=== PATIENT | female | born 1960 | race Caucasian/White ===

== ENCOUNTER 2018-10-27 10:52 | Inpatient (IN) ==
--- NOTE | 2018-10-17 15:51 | PAT Medication Instructions ---
Medication Instructions Date of Service October 17, 2018 Home Medications Airborne 1 dose PO QPM diphenhydramine HCl [Benadryl] 25 mg PO HS PRN metformin 500 mg PO QPM [Centrum Silver Women] chzwuewz-hqo-ltjw-FA-lutein 1 tab PO DAILY multivitamin with minerals 2 tab PO DAILY STOP taking 2 weeks before surgery (or as soon as possible if surgery is within 2 weeks) [Centrum Silver Women] sjhouttu-ukk-mwxe-FA-lutein 1 tab PO DAILY [hair, skin, nails] multivitamin with minerals 2 tab PO DAILY Take evening before surgery Airborne 1 dose PO QPM diphenhydramine HCl [Benadryl] 25 mg PO HS PRN (if needed) metformin 500 mg PO QPM Other Notes If you have any questions please call us at [phone] or [phone] or [phone] or [phone]
--- NOTE | 2018-10-18 14:28 | XRay Report ---
XR chest Pre-admission PA/Lat CLINICAL HISTORY: 57 years-old Female presenting with preoperative assessment. TECHNIQUE: PA and lateral views of the chest were obtained. COMPARISON: None. FINDINGS: Cardiomediastinal silhouette normal. Lungs and pleural spaces clear. Osseous structures normal. Osiris cystectomy clips noted. IMPRESSION: 1. No acute cardiopulmonary disease. Electronically signed by: Cecil Guadalupe M.D. 10/18/2018 2:26 PM
[2018-10-18 15:26] LABS: Basophils # (auto) 0.03 K/uL (0-0.2); Basophils % (auto) 0.3 %; Eosinophils # (auto) 0.14 K/uL (0-0.5); Eosinophils % (auto) 1.6 %; Hemoglobin 14.5 g/dL (12.0-16.0); Immature Granulocytes # (auto) 0.02 K/uL (0.00-0.02); Immature Granulocytes % (auto) 0.2 %; Lymphocytes # (auto) 3.15 K/uL (1.2-3.4); Lymphocytes % (auto) 36.1 %; Mean Corpuscular Hgb Conc 34.5 g/dL (32-36); Mean Corpuscular Volume 86.6 fL (80-100); Mean Platelet Volume 10.7 fL (7.4-10.4); Monocytes % (auto) 6.9 %; Neutrophils # (auto) 4.78 K/uL (1.4-6.5); Neutrophils % (auto) 54.9 %; Platelet Count 256 K/uL (130-400); RDW Coefficient of Variation 12.5 % (11.5-14.5); Red Blood Count 4.85 M/uL (4.2-5.4); White Blood Count 8.72 K/uL (4.8-10.8)
[2018-10-18 15:27] LABS: Appearance Urine Clear (Clear); Bilirubin Urine Negative (Negative); Blood Urine Negative (Negative); Color Urine Yellow; Glucose Urine UA Negative (Negative); Ketones Urine Negative (Negative); Leukocyte Esterase Urine Negative (Negative); Nitrite Urine Negative (Negative); Protein Urine Negative (Negative); Specific Gravity Urine 1.015 (1.000-1.030); Urobilinogen Urine Negative (Negative); pH Urine 5.5 (4.5-7.5)
--- NOTE | 2018-10-18 15:33 | Anesthesiology Consultation ---
Date of Service October 18, 2018 Assessment & Plan (1) Encounter for pre-operative examination: - Check BSG AM DOS *Possible difficult intubation due to anatomy* Chart Review Chart Review: Acceptable Risk for Surgery and Patient seen in Pre Admission Testing Teaching & Discussion Pre-Anesthesia Teaching/Discussion Notes: Instructed NPO after midnight before surgery,except medications with 15 cc of water. Medication instructions provided according to the PAT guidelines. History Surgery Operation Date: 10/27/18 10:35 Proposed Procedures p L4-S1 Decompression and Fusion, Spinal Cord Monitoring - Levon Montiel DO Height/Weight Height: 5 ft 2 in Weight: 79.7 kg Allergies Allergy/AdvReac Type Severity Reaction Status Date / Time No Known Allergies Allergy Verified 10/14/18 15:37 Medications Home Medications Medication Instructions Recorded Confirmed Last Taken Airborne 1 dose PO QPM 10/14/18 10/14/18 Unknown diphenhydramine HCl [Benadryl] 25 mg PO HS PRN 10/14/18 10/14/18 Unknown metformin 500 mg PO QPM 10/14/18 10/14/18 Unknown myxscczw-mna-izmt-FA-lutein 1 tab PO DAILY 10/14/18 10/14/18 Unknown [Centrum Silver Women] multivitamin with minerals 2 tab PO DAILY 10/14/18 10/14/18 Unknown [Hair,Skin and Nails] Past Medical History Medical History Diabetes NIDDM Obesity Snores NO DIAGNOSIS DARIANA Spinal stenosis Exercise / Class Metabolic Activity II 4-5 Yardwork/Stairs/Walk up hill Past Family History Family History Aunt Family history of cancer Uncle Family history of cancer Other Family history of colon cancer in father Past Surgical History Surgical History History of bilateral breast reduction surgery History of cholecystectomy History of colonoscopy History of tubal ligation History of varicose veins LE S/P ABLATION Past Anesthesia History No Hx of Anesthesia Complications (EXCEPT POST-OP NAUSEA) and No Family Hx of Anesthesia Complications History of PONV History of PONV (REMOTE; NO ISSUE WHEN PRE-TREATMENT GIVEN) and Hx of Motion Si ckness Social History Smoking Status: Never smoker Do You Dip or Chew Tobacco: No Hx Alcohol Use: No Hx Substance Use: No substance use type: does not use Review of Systems Patient denies chest pain, shortness of breath, dyspnea on exertion, reflux, cough, wheezing, palpitations. Physical Exam Vital Signs VITALS BP 127/86 P 70 TEMP 97.9 SP02 96%RA RESP 16 PHYSICAL Full neck and c-spine range of motion. Full TMJ range of motion. TMD 2 finger breaths (small chin) Mallampati Score 3 Dentition: intact, several crowns all over Lungs: clear throughout to auscultation Cardiac: regular rate and rhythm, no murmurs noted Spine: normal Carotid arteries: negative bruit Extremities: no edema Testing Electrocardiogram Date: 10/18/18 NSR at 73bpm. NS TWA. Prolonged QT* Chest X-Ray Date: 10/18/18 Findings: + NAD Laboratory Results 10/18/18 14:01 10/18/18 14:01 PT 10.3 Seconds (9.0-12.0) 10/18/18 14: INR 1.0 (0.9-1.1) 10/18/18 14: APTT 25.4 Seconds (21.0-31.0) 10/18/18 14:01 Yellow 10/18/18 14:01 Clear (Clear) 10/18/18 14:01 5.5 (4.5-7.5) 10/18/18 14: Ur Specific [place] 1.015 (1.000-1.030) 10/18/18 14:01 Negative (Negative) 10/18/18 14:01 Negative (Negative) 10/18/18 14:01 Negative (Negative) 10/18/18 14:01 Negative (Negative) 10/18/18 14:01 Ur Leukocyte Esterase Negative (Negative) 10/18/18 14:01 Blood Type A Negative 10/18/18 14:01 Antibody Screen NEGATIVE 10/18/18 14:01
[2018-10-18 15:40] LABS: Partial Thromboplastin Ratio 0.9; Partial Thromboplastin Time 25.4 Seconds (21.0-31.0); Prothrombin Time 10.3 Seconds (9.0-12.0)
[2018-10-18 15:41] LABS: BUN Creatinine Ratio 25.1 (10-20); Calcium 9.3 mg/dl (8.5-10.1); Creatinine Clr Calc Pharmacy 94.5 ml/min; Est GFR (Non-African American) 99.2; Potassium 3.8 mmol/L (3.5-5.1)
[~2018-10-27 10:52] MED LIST: ACETAMINOPHEN 500 MG TAB PO SCH; CEFAZOLIN 2000MG 2,000 MG/15 ML SYR IV SCH; CeleBREX 200 MG CAP PO SCH; GABAPENTIN 300 MG x 2 PO SCH; HYDROmorphone INJ 2 MG/ML SYR/VIAL ONE; LR 15ML/HR IV SCH; PROPOFOL IV EMULSION 10 MG/ML 100 ML VIAL IV ONE
[2018-10-27] MEDS ORDERED: LR 15ML/HR IV SCH (11:30)
[2018-10-27] MEDS ORDERED: MIDAZOLAM HCL 1 MG/ML 2ML VIAL ONE (12:06)
[2018-10-27] MEDS ORDERED: fentaNYL citrate 100 MCG/2 ML VIAL ONE ×3 (12:06→13:44)
--- NOTE | 2018-10-27 12:50 | History & Physical Bridge Note ---
Date of Service October 27, 2018 History & Physical Bridge Note I have examined the patient, reviewed the History & Physical and in the interval since the performance of the History & Physical I have noted the following changes of clinical significance: no changes noted
--- NOTE | 2018-10-27 12:51 | History & Physical Report ---
Date of Service October 27, 2018 Assessment & Plan (1) Spinal stenosis, lumbar region with neurogenic claudication: L4-S1 decompression and fusion Present on Admission?: Yes History of Present Illness Chief Complaint: Chronic back and bilateral leg pain Primary Care Provider: NO PCP This is a 57-year-old female well-known to us that presents with chronic persistent back and bilateral leg pain and is here for surgical intervention. Allergies Allergy/AdvReac Type Severity Reaction Status Date / Time No Known Allergies Allergy Verified 10/27/18 11:28 Home Medications Home Medications Medication Instructions Recorded Confirmed Type Airborne 1 dose PO QPM 10/14/18 10/27/18 History diphenhydramine HCl [Benadryl] 25 mg PO HS PRN 10/14/18 10/27/18 History metformin 500 mg PO QPM 10/14/18 10/27/18 History dhkxupto-ycq-hvmj-FA-lutein 1 tab PO DAILY 10/14/18 10/27/18 History [Centrum Silver Women] multivitamin with minerals 2 tab PO DAILY 10/14/18 10/27/18 History [Hair,Skin and Nails] Past Med/Surg History Medical History Diabetes NIDDM Obesity Snores NO DIAGNOSIS DARIANA Spinal stenosis Surgical History History of bilateral breast reduction surgery History of cholecystectomy History of colonoscopy History of tubal ligation History of varicose veins LE S/P ABLATION Family History Aunt Family history of cancer Uncle Family history of cancer Other Family history of colon cancer in father Social History Preferred Language: Yakut Communication Ability: Effective Rn Child Required: No Beliefs That Will Affect Care: None Current Living Situation: Spouse Other Information That Helps Us Care for You: No Feels Safe at Home: Yes Smoking Status: Never smoker Do You Dip or Chew Tobacco: No Hx Alcohol Use: No Hx Substance Use: No Physical Exam Vital Signs (Past 24 Hours): Last Vital Signs Temp 37 C 10/27/18 11:31 Pulse 97 H 10/27/18 11:31 Resp 16 10/27/18 11:31 BP 162/93 H 10/27/18 11:31 Pulse Ox 99 10/27/18 11:31 Physical Exam: Patient is alert and oriented neurologically intact.
[2018-10-27] MEDS ORDERED: BUPIVACAINE/EPINEPHRINE 0.5% MPF 1:200,000 30 ML VIAL ONE (13:06)
[2018-10-27] MEDS ORDERED: BACITRACIN INJ 50,000 UNIT VIAL ONE (13:06)
[2018-10-27] MEDS ORDERED: ATROPINE SULFATE 0.1 MG/ML 10ML SYR IV PRN (14:07)
[2018-10-27] MEDS ORDERED: HYDROmorphone INJ 1 MG/ML SYRINGE IV PRN (14:07)
[2018-10-27] MEDS ORDERED: ePHEDrine sulfate 50 MG/ML AMP IV PRN (14:07)
[2018-10-27] MEDS ORDERED: ONDANSETRON INJ 2 MG/ML 2 ML VIAL IV PRN ×2 (14:07→17:01)
[2018-10-27] MEDS ORDERED: PROMETHAZINE HCL 12.5 MG in SODIUM CHLORIDE 0.9% 50 ML IV PRN ×2 (14:07→17:01)
[2018-10-27] MEDS ORDERED: LABETALOL HCL IV 5 MG/ML 20ML IV PRN (14:07)
[2018-10-27] MEDS ORDERED: FLUMAZENIL 0.1 MG/1 ML 10 ML VIAL IV PRN (14:07)
[2018-10-27] MEDS ORDERED: NALOXONE HCL 0.4 MG/1 ML VIAL/CARP IV PRN (14:07)
[2018-10-27] MEDS ORDERED: ROCURONIUM BROMIDE 10 MG/ML 5 ML VIAL ONE (14:30)
[2018-10-27] MEDS ORDERED: PHENYLEPHRINE 100MCG/ML 5ML SYR ONE (14:30)
[2018-10-27] MEDS ORDERED: LARYING-O-JET KIT (LTA) ONE (14:30)
[2018-10-27] MEDS ORDERED: LIDOCAINE HCL 2% 2 ML VIAL/AMP(20MG/ML) INFIL ONE (14:30)
[2018-10-27] MEDS ORDERED: GLYCOPYRROLATE 0.2 MG/ML VIAL ONE (14:30)
[2018-10-27] MEDS ORDERED: PROPOFOL IV EMULSION 10 MG/ML 20 ML VIAL IV ONE (14:30)
[2018-10-27] MEDS ORDERED: NEOSTIGMINE METHYLSULFATE 1 MG/ML 10ML VIAL ONE (14:30)
[2018-10-27] MEDS ORDERED: ONDANSETRON INJ 2 MG/ML 2 ML VIAL ONE (14:30)
[2018-10-27] MEDS ORDERED: METOCLOPRAMIDE HCL INJ 5 MG/ML 2 ML VIAL ONE (14:30)
[2018-10-27] MEDS ORDERED: DEXAMETHASONE SOD INJ 4 MG/ML VIAL ONE (14:30)
[2018-10-27] MEDS ORDERED: ePHEDrine sulfate 50 MG/ML SYR ONE (14:30)
[2018-10-27] MEDS ORDERED: HYDROmorphone INJ 2 MG/ML SYR/VIAL ONE (14:52)
[2018-10-27] MEDS ORDERED: FLOSEAL HEMOSTATIC MATRIX 10ML TOP ONE (15:31)
--- NOTE | 2018-10-27 15:42 | Operative Report ---
Post Operative Report Pre & Post Diagnosis Operation Date: 10/27/18 12:45 Pre-Op Diagnosis: Spinal stenosis, lumbar region with neurogenic claudication Spondylolisthesis L4-5 Obesity Post-Op Diagnosis: Same Procedure Operation Date: 10/27/18 12:45 Actual Procedures #1 lumbar decompression bilateral medial facetectomies and foraminotomies L3-4 L4-5 L5-S1. #2 posterior spinal fusion L4-5 L5-S1. #3 placement posterior instrumentation using globus rods and screws L4-5 L5-S1. #4 interbody fusion L4-5 L5-S1. #5 placement of peek cage 12 x 22 mm at L4-5 and 10 x 22 mm L5-S1. #6 placement of local autograft in the posterior lateral gutters. #7 placement infuse collagen sponge combined with master graft in the posterior lateral gutters and ostial amp in the interbody space. Surgeon Levon Montiel DO Project Economist Gracie Garcia Estimated Blood Loss 200 Findings See Below Patient is a 5 foot and 2 inches tall with a body weight of 78.4 kg with a BMI of 31. Patient's body habitus did add an increase of at least 30 to 40% an operative time requiring larger retractors and longer Kerrisons to perform more technically demanding procedure. Specimens None Indications This is a 57-year-old female who presents with above-mentioned diagnosis after failing a course of nonoperative care she like to undergo the above-mentioned p rocedure. Description of Procedure Patient was met with preoperatively identified and informed consent obtained. Patient was then taken to the operative suite underwent intubation placed in a prone position Chetan table top Arsalan frame all bony prominences well-padded eyes inspected to ensure no external pressure placed upon the peer at this point the lumbar spine was prepped and draped in normal sterile fashion. Sharp dissection with the assistance of Bovie cautery was performed down to and exposing the lamina and transverse processes of L4-L5 and sacral ala bilaterally. From a caudal to cephalad fashion complete laminectomy of L5 L4 and partial laminectomy L3 was performed including bilateral medial facetectomies and foraminotomies addressing severe spinal stenosis. Pedicle screws were then placed in L4-L5 and S1 levels bilaterally with assistance of fluoroscopy and appropriate size jelani placed. By way of a transforaminal approac h on the left complete discectomy of L5-S1 was performed in plate graded to subcortical being bone and a 10 x 22 mm peek cage filled with ostium bone graft tapped in position. Then proceeded to L4-[address] of a transforaminal portion of the left complete discectomy performed in plate graded to subcortical bleeding bone and a 12 x 22 mm peek cage filled with osteo-amp bone graft tapped in position. Rods were then compressed locked into final position bilaterally. The transverse processes of L4-L5 and sacral ala bur to subcortical bleeding bone. Infuse collagen sponge mass graft local autograft placed in the posterior lateral gutters. 15 round YURI drain inserted. The incision was then closed with 1 Vicryl in the fascia 2-0 Vicryl substantially and 4-0 Monocryl for final skin closure. Steri-Strip sterile dressings placed. Patient awakened taken to PACU in stable condition. Please note Gracie Garcia present at the entire procedure involved in patient positioning complex portions of the procedure and final skin closure. Lastly spinal cord monitoring was utilized throughout the procedure and no changes noted. I attest to the content of the Intraoperative Record and any orders documented therein. Any exceptions are noted below.
--- NOTE | 2018-10-27 15:44 | Fluoroscopy Report ---
LUMBAR SPINE, INTRAOPERATIVE FLUOROSCOPY HISTORY: L4 S1 decompression and fusion. FLUOROSCOPY TIME: 20 seconds. FINDINGS: Intraoperative fluoroscopy was provided for the lumbar spine. 2 fluoroscopic spot images we re obtained. Posterior decompression and fusion from L4 through S1 with pedicle screws and rods. The hardware appears intact. IMPRESSION: Fluoroscopy provided for a L4-S1 posterior decompression and fusion. Electronically signed by: Donaldo Jerry M.D. 10/27/2018 3:42 PM
--- NOTE | 2018-10-27 16:44 | Anesthesiology Progress Note ---
Date of Service October 27, 2018 Anesthesia Post Procedure Vital Signs Vital Signs: Temp Pulse Pulse Resp BP Pulse Ox 10/27/18 16:40 96 H 17 131/76 96 10/27/18 16:30 92 H 17 132/77 96 10/27/18 16:20 97 H 17 129/78 96 10/27/18 16:10 98 H 17 138/81 98 10/27/18 16:00 97.5 F L 100 H 17 149/93 H 98 10/27/18 11:31 98.6 F 97 H 16 162/93 H 99 Transfer of Care Handoff Completed per policy Notes Mental Status: alert / awake / arousable and participated in evaluation Patient Amnestic to Procedure: Yes Nausea / Vomiting: adequately controlled Pain: adequately controlled Airway Patency, RR, SpO2: stable & adequate BP & HR: stable & adequate Hydration State: stable & adequate Anesthetic Complications: no major complications apparent and Pt Satisfied with anesthetic care
[2018-10-27] MEDS ORDERED: DO NOT ADMINISTER FLU VACCINE PRN (17:01)
[2018-10-27] MEDS ORDERED: ONDANSETRON 4 MG TAB PO PRN (17:01)
[2018-10-27] MEDS ORDERED: ACETAMINOPHEN 1,000 MG/100 ML VIAL IV PRN (17:01)
[2018-10-27] MEDS ORDERED: ALUMINUM/MAGNESIUM SUSP 30 ML UDC PO PRN (17:01)
[2018-10-27] MEDS ORDERED: ACETAMINOPHEN 500 MG TAB PO PRN (17:01)
[2018-10-27] MEDS ORDERED: LORazepam 0.5 MG/1 ML VIAL IV PRN (17:01)
[2018-10-27] MEDS ORDERED: SOD PHOSPHATE/SOD BIPHOSPHATE ENEMA 132 ML BTL PR PRN (17:01)
[2018-10-27] MEDS ORDERED: LORazepam 0.5 MG TAB PO PRN (17:01)
[2018-10-27] MEDS ORDERED: BISACODYL 10 MG SUPP PR PRN (17:01)
[2018-10-27] MEDS ORDERED: METOCLOPRAMIDE HCL INJ 5 MG/ML 2 ML VIAL IV PRN (17:01)
[2018-10-27] MEDS ORDERED: HYDROmorphone INJ 0.5 MG/0.5 ML SYR IV PRN (17:01)
[2018-10-27] MEDS ORDERED: MAGNESIUM HYDROXIDE SUSP 30 ML UDC PO PRN (17:01)
[2018-10-27] MEDS ORDERED: FAMOTIDINE 20 MG TAB PO PRN (17:01)
[2018-10-27] MEDS ORDERED: DO NOT ADMINISTER PNEUMOCOCCAL VACCINE PRN (17:01)
[2018-10-27] MEDS: KETOROLAC TROMETHAMINE 15 MG/ML VIAL IV SCH (19:03)
[2018-10-27] MEDS: SODIUM CHLORIDE 0.9% 1000ML 1,000 ML IV SCH (19:16)
[2018-10-27] MEDS ORDERED: PHARMACY GLYCEMIC MGMT CONSULT PRN (20:59)
[2018-10-27] MEDS: DOCUSATE SODIUM/SENNA 50/8.6MG TAB PO SCH (21:19)
[2018-10-27] MEDS: TRAMADOL HCL 50 MG TABLET PO PRN (21:27)
[2018-10-27] MEDS: INSULIN ASPART 100 UNITS/ML 3 ML PEN SC SCH (21:33)
[2018-10-27] MEDS: CEFAZOLIN 2000MG 2,000 MG/15 ML SYR IV SCH (21:56)
[2018-10-28] MEDS: INSULIN ASPART 100 UNITS/ML 3 ML PEN SC SCH ×6 (00:24→21:34)
[2018-10-28] MEDS: KETOROLAC TROMETHAMINE 15 MG/ML VIAL IV SCH ×3 (00:27→13:08)
[2018-10-28] MEDS: CEFAZOLIN 2000MG 2,000 MG/15 ML SYR IV SCH (05:27)
[2018-10-28 06:00] LABS: Basophils # (auto) 0.01 K/uL (0-0.2); Basophils % (auto) 0.1 %; Hematocrit (blood only) 33.3 % (37-47); Hemoglobin 11.5 g/dL (12.0-16.0); Immature Granulocytes # (auto) 0.04 K/uL (0.00-0.02); Immature Granulocytes % (auto) 0.4 %; Lymphocytes # (auto) 1.48 K/uL (1.2-3.4); Lymphocytes % (auto) 13.5 %; Mean Corpuscular Hgb Conc 34.5 g/dL (32-36); Mean Corpuscular Volume 86.9 fL (80-100); Mean Platelet Volume 10.4 fL (7.4-10.4); Monocytes # (auto) 0.72 K/uL (0.11-0.59); Monocytes % (auto) 6.6 %; Neutrophils % (auto) 79.4 %; Platelet Count 214 K/uL (130-400); RDW Coefficient of Variation 12.6 % (11.5-14.5); RDW Standard Deviation 40.6 fL (36.4-46.3); Red Blood Count 3.83 M/uL (4.2-5.4); White Blood Count 10.95 K/uL (4.8-10.8)
[2018-10-28 06:19] LABS: Estimated Average Glucose 137 mg/dl; Hemoglobin A1C 6.4 % (4.5-5.6)
[2018-10-28 06:26] LABS: BUN Creatinine Ratio 18.2 (10-20); Calcium 8.7 mg/dl (8.5-10.1); Creatinine Clr Calc Pharmacy 95.2 ml/min; Est GFR (African American) 115.6; Est GFR (Non-African American) 99.8; Potassium 3.9 mmol/L (3.5-5.1)
[2018-10-28] MEDS: POLYETHYLENE (MIRALAX) 17 GM PACK PO SCH ×4 (06:59→23:05)
--- NOTE | 2018-10-28 09:39 | Anesthesiology Progress Note ---
Date of Service October 28, 2018 Anesthesia Post Procedure Vital Signs Vital Signs: Temp Pulse Pulse Pulse Resp BP Pulse Ox 10/28/18 07:00 36.7 C 86 20 102/66 95 10/28/18 04:10 36.5 C 84 14 99/61 L 94 10/27/18 23:51 36.4 C L 91 H 14 104/69 94 10/27/18 20:10 36.9 C 103 H 16 113/73 96 10/27/18 19:06 36.5 C 96 H 18 105/67 97 10/27/18 18:11 98 H 17 118/77 98 10/27/18 17:54 36.5 C 93 H 17 122/76 98 10/27/18 16:50 36.4 C L 94 H 18 135/78 98 10/27/18 16:40 96 H 17 131/76 96 10/27/18 16:30 92 H 17 132/77 96 10/27/18 16:20 97 H 17 129/78 96 10/27/18 16:10 98 H 17 138/81 98 10/27/18 16:00 36.4 C L 100 H 17 149/93 H 98 10/27/18 11:31 37 C 97 H 16 162/93 H 99 Pain Intensity Back: Pain Intensity: 0 Notes Mental Status: alert / awake / arousable Patient Amnestic to Procedure: Yes Nausea / Vomiting: adequately controlled Pain: adequately controlled Airway Patency, RR, SpO2: stable & adequate BP & HR: stable & adequate Hydration State: stable & adequate Anesthetic Complications: no major complications apparent
--- NOTE | 2018-10-28 10:44 | Pharmacy Report ---
Glycemic Control Consultation - Date of Service October 28, 2018 - Scope Scope: Glycemic Pharmacist consulted by Dr Burleson on 10/27/18 for glycemic control and to write orders per [facility] inpatient glycemic control protocol - Objective Weight: 78.4 kg Accuchecks BSG (last 24hrs): 10/27/18 10/27/18 10/27/18 11:37 16:07 17:12 Glucose POC Glucose 111 H 163 H 177 H 10/27/18 10/27/18 10/28/18 20:49 23:58 04:09 Glucose POC Glucose 167 H 156 H 111 H 10/28/18 10/28/18 05:42 07:59 Glucose 141 H POC Glucose 126 H Laboratory Data (last 24hrs): 10/28/18 05:42 Potassium 3.9 Carbon Dioxide 26 Anion Gap 7.0 Creatinine 0.64 Est Cr Clr Drug Dosing 95.2 HbA1c: 6.4 % (4.5-5.6) H 10/28/18 05:42 - Recent Pertinent Medications Outpatient Anti-diabetic Regimen: * Metformin * A1c = 6.4 % 10/28/18 - Assessment & Plan Assessment & Plan: ASSESSMENT: * Ms. Clemente is a 57yo F unbeknownst to the pharmacy glycemic service. Today's A1C indicative of pre-diabetes, 6.4%. She is POD: 1 for a lumbar decomp ression. She received 12mg IV DXM iggy-operatively yesterday. She is ordered a diet with consistent PO intake. * BSGs over the preceding 24hrs mostly well controlled: [phone]/dL. Only required 3 units of insulin yesterday. PLAN FOR INPATIENT GLYCEMIC CONTROL: * Holding outpatient oral diabetes medications * Basal insulin * none indicated at this juncture * Bolus insulin * NovoLog per scale ACHS or Q6hrs while NPO * Goal Range: Low 110 mg/dL - High 140 mg/dL * Correction Factor: 20 mg/dL/unit * Nutritional / Prandial insulin per carb ratio of 1 unit per 7 grams CHO consumed Discharge Recs: * Given Ms. Clemente's habitus, I would recommend increasing the dose of her metformin as tolerated. Given the weight loss/neutral properties of metformin. Max daily limit: 2550mg * Would avoid medications with properties that cause weight gain: glipizide, prandin, TZDs etc * Please note that the plan above was derived based on current level of insulin resistance and hospital stress. These recommendations are appropriate for inpatient admission only. Plan of care upon discharge will need to be reassessed to avoid potential outpatient hypo/hyperglycemia. Thank you.
--- NOTE | 2018-10-28 15:21 | Orthopedic Progress Note ---
Date of Service October 28, 2018 Assessment & Plan (1) Spinal stenosis, lumbar region with neurogenic claudication: This time we will continue physical therapy monitor her YURI output and hopefully discharge home the next few days. Present on Admission?: Yes Subjective Patient's back pain is controlled leg symptoms are markedly improved. Physical Exam 2 Physical Exam: On exam she is sitting up in bed. Is good strength testing. She is just returned from a walk. Results & Data Vital Signs (Past 12 Hours) Vital Signs Temp Pulse Resp BP Pulse Ox 10/28/18 15:17 37.2 C 85 16 103/66 96 10/28/18 12:00 36.6 C 68 20 122/74 97 10/28/18 07:00 36.7 C 86 20 102/66 95 10/28/18 04:10 36.5 C 84 14 99/61 L 94
[2018-10-28] MEDS: TRAMADOL HCL 50 MG TABLET PO PRN ×2 (18:43→23:07)
[2018-10-28] MEDS: DOCUSATE SODIUM/SENNA 50/8.6MG TAB PO SCH (21:22)
[2018-10-28] MEDS: SODIUM CHLORIDE 0.9% 1000ML 1,000 ML IV SCH (22:16)
[2018-10-29] MEDS: POLYETHYLENE (MIRALAX) 17 GM PACK PO SCH ×2 (06:36→13:34)
[2018-10-29] MEDS: INSULIN ASPART 100 UNITS/ML 3 ML PEN SC SCH ×2 (09:01→13:34)
--- NOTE | 2018-10-29 10:28 | Discharge Summary ---
Date of Service October 29, 2018 Admission HPI Per Admitting Provider This is a 57-year-old female well-known to us that presents with chronic persistent back and bilateral leg pain and is here for surgical intervention. Principal Diagnosis Lumbar spinal stenosis with neurogenic claudication Discharge Data Allergies Allergy/AdvReac Type Severity Reaction Status Date / Time No Known Allergies Allergy Verified 10/27/18 11:28 Consultations 10/27/18 17:01 Consult Case Management - Discharge Planning Routine Procedures Performed Operation Date: 10/27/18 12:45 Actual Procedures p L4-S1 Decompression and Fusion, Spinal Cord Monitoring(Not Applicable) - Levon Montiel DO Ordered Studies 10/27/18 12:00 FL fluoroscopy <1hr Routine FL lumbar spine 2-3V Routine Hospital Course (1) Spinal stenosis, lumbar region with neurogenic claudication: Patient underwent lumbar decompression fusion tolerated as well as taken to the orthopedic floor postoperative. Postop day and when she was up and ambulating nicely. Progressive postop day #2. Back pain controlled YURI drain decreasing probably. Subsequent discharge home. Discharge orders and instructions from the chart for further review. Total Time Total Time Spent Total Time Spent (In Minutes): 20 minutes Discharge Plan Discharge Items Patient Disposition: Home - Self-Care Reason For Visit: Radiculopathy, Lumbar Region Discharge Diagnosis: Lumbar spinal stenosis with neurogenic claudication Discharge Goals: Decrease discomfort Activity: Per 'Additional Instructions' section Non-emergency contact: Primary Care Provider Call non-emergency contact if: you have any medication questions Follow-up/Referrals: PCP,NO [Primary Care Provider] - Diet: Regular Addtl Provider Instructions: ACTIVITY RECOMMENDATIONS: SELF CARE INSTRUCTIONS AFTER THORACIC/LUMBAR FUSIONS 1. You may walk to your tolerance. It is good exercise for your legs and back. Expect some back and intermittent leg aches and pains. 2. You may perform "counter-top" level activities (make a sandwich, sherrie with a project, etc.). 3. No bending or lifting of more than 10 pounds or back twisting of any nature (roll like a log when turning in bed). 4. You may ride in a car for 20-30 minutes at a time. No driving until after your first visit with your doctor. 5. Frequent changes of position and restricting sitting to 30 minutes at a time will help limit the amount of back spasms and stiffness you may experience. 6. You may discontinue the use of ambulatory aids (cane, crutches, etc.) once your strength and confidence allow. 7. You may heavy forging machine operator the shower and let water strike your incision when you arrive home at least once daily. Do not take a tub bath, sit in a hot tub or go into a swimming pool until after your first recheck in the office. SPECIAL CARE INSTRUCTIONS: VERY IMPORTANT TO READ AND REVIEW A. Your surgical incision has been closed with a cosmetic suture under the skin that will dissolve in about 6 weeks. In 14 days, you can use a pair of clean scissors and cut the suture that is left outside of the skin at the ends of your incision. 1. The small skin tapes can be removed 7 days after surgery if they have not fallen off by that point. 2. You may keep the wound open to air as much as possible to promote healing after post-op day number 5 unless told otherwise by your doctor. 3. If you think the wound looks like it is becoming infected (redness or worsening drainage) and/or you are experiencing fever, chill or worsening back pain and muscle spasms, contact the office so that we may evaluate you as soon as possible. B. Complications are uncommon, but please contact us if you have any signs or symptoms of: 1. wound infection (fever higher than 102.5 degrees F, redness, separation of wound, drainage, or increasing pain from the incision) 2. blood clots in legs (pain, swelling, redness and warmth in legs) 3. urinary tract infection (fever higher than 102.5 degrees F, burning upon urination or increased frequency of urination) 4. nerve problems (inability to walk on your toes or heels, numbness, loss of bowel or bladder control) 5. any other symptoms that concern you C. Please call the office at if you have any concerns or questions about your operation or recovery. D. No smoking! Smoking drastically decreases the chance of a solid fusion. E. Do not take any anti-inflammatory medications (Indocin, Advil, Motrin, Aspirin, Naprosyn, etc.) as these may inhibit the chance of a solid fusion. Tylenol is okay to take for pain. MANAGING PAIN AFTER SPINAL SURGERY 1. Narcotic medication is intended for short-term use and will be provided for surgical pain. Surgical pain usually lasts for a period of 4-6 weeks. Narcotic medication includes Percocet, Vicodin, Darvocet, Tylenol #3 or Lortab. 2. Longer-term pain is more appropriately treated with non-narcotic medication such as Tylenol ES. 3. Muscle spasm is not appropriately treated with narcotics. Muscle relaxers such as Soma, Flexeril or Skelaxin can be used along with Tylenol ES. 4. Remember that we all live with some "aches and pains". This is not unusual or uncommon after an injury or as we get older. a. Back pain is expected and may include muscle spasms for 4 to 6 weeks after surgery. The pain should gradually improve. If the pain worsens for no apparent reason, please contact the office. b. Intermittent leg pain may also be experienced and should not be concerned about unless it worsens for no apparent reason. If so, please contact the office. 5. We will provide appropriate medication within the normal guidelines of their prescribed use. We will also be very cautious and aware of potential abuse and extended duration of patients' medication needs. a. Pain medications are for your comfort and to assist with sleep and rest so that the tissue can heal. They are not provided in order to return to normal activity and should not be used through the day. To do so or worsening pain at night can result from ongoing tissue damage and development of tolerance to the prescribed medicine. 6. Please allow 2-3 days to process refills. Prescriptions will not be mailed but must be picked up at the office. FOLLOW UP VISIT: Keep your scheduled follow-up appointment. Any questions, please call the office at . Prescriptions: New tramadol 50 mg Tablet 50 mg PO Q4H PRN (Reason: Pain, Moderate) Qty: 30 RF: 0 oxycodone 5 mg Tablet 5 mg PO Q4H PRN (Reason: Pain, Moderate) Qty: 30 RF: 0 Continued multivitamin with minerals [Hair,Skin and Nails] Tablet 2 tab PO DAILY RF: 0 Centrum Silver Women 8 mg iron-400 mcg-300 mcg Tablet 1 tab PO DAILY RF: 0 Airborne 1 dose PO QPM RF: 0 diphenhydramine HCl [Benadryl] 25 mg Capsule 25 mg PO HS PRN (Reason: Sleep) RF: 0 No Action metformin 500 mg tablet extended release 24 hr 500 mg PO QDD RF: 0 Stand-Alone Forms: NicOx/Other Patient Handouts: Blood Sugar Check Discharge Orders: Discharge Order (Routine); Ordered 10/29/18 Ordered By: Levon Montiel Admission Data Admit Date/Time: 10/27/18 15:46 Attending Provider: Levon Montiel Admit Provider: Levon Montiel Primary Care Provider: [facility] Service: Surgical Services
[2018-10-29] MEDS: OXYCODONE HCL IR 5 MG TAB (IMMEDIATE RELEASE) PO PRN ×2 (10:53→14:56)
== END 2018-10-29 15:08 | disposition home or self-care (01) | DRG 455 ==
LOC: ASU 10:52 → 3E 15:46